=== PATIENT | female | born 1960 | race Caucasian/White ===

== ENCOUNTER → 2023-10-11 11:05 | Outpatient (REF) | payer OTHER, SELFPAY | LOC: DHCBC HW 11:05 | PROVIDERS: ATTENDING PHYSICIAN Internal Medicine Cardiovascular Disease; FAMILY PHYSICIAN Family Medicine | DX: R00.2 Palpitations (principal) | CPT/HCPCS: 93306 ==

== ENCOUNTER → 2023-10-17 12:57 | Outpatient (REF) | payer OTHER, SELFPAY | LOC: RCS 12:57 | PROVIDERS: ATTENDING PHYSICIAN Internal Medicine Cardiovascular Disease; FAMILY PHYSICIAN Family Medicine | DX: R00.2 Palpitations (principal) | CPT/HCPCS: 93225; 93226 ==

== ENCOUNTER 2024-09-25 18:27 | Emergency (ER) | payer OTHER, SELFPAY ==
[2024-09-25 18:29] VITALS: BP 129/82
--- NOTE | 2024-09-25 19:20 | ED.GENMED ---
History of Present Illness
<SINAI Edwards - Last Filed: 09/25/24 22:25>
General
Chief Complaint: Cardiac Symptoms
Source: patient
Exam Limitations: none
Time Seen by Provider: 09/25/24 19:06
History of Present Illness
History of Present Illness:
This is a 63 year old female that comes in with c/o gastric pain/ heart palpitations. States that she feels like her heart is pounding. States that she feels this pulsation in the upper abd. States that his has been going on for a couple of months.
States that it seemed to get better and then got worse. States that she saw the GI specialist and she was told to see the [facility] for further evaluation. States that she can't get into see them till November. States that she felt like this in the
past when she had Lyme disease. States that she has had some nausea and a headache. Denies any fever, chills, SOB, vomiting, diarrhea, dizziness, urinary burning.
Past History
<SINAI Edwards - Last Filed: 09/25/24 22:25>
Past History
ED Past Medical History: GERD, Hypercholesterolemia, Hypothyroidism, Psychiatric (Depression) and Other (Vertigo, Tinnitus, Lyme)
ED Past Surgical History: Appendectomy and Gynecological (Endometriosis surgery)
Social History
Tobacco: Former smoker
Alcohol: Occasional
Drug: Marijuana
Personal: Partner
Living: with family
Review of Systems
<SINAI Edwards - Last Filed: 09/25/24 22:25>
Review of Systems
All Other Systems: ROS reviewed and negative except as documented in HPI and ROS
Constitutional: Reports no symptoms; Denies fever or chills
EENT: Reports no symptoms
Respiratory: Reports no symptoms; Denies cough or trouble breathing
Cardiac: Denies chest pain
ABD/GI: Reports abdominal pain (Upper abd discomfort) and nausea; Denies vomiting or diarrhea
: Reports no symptoms; Denies dysuria, frequency or urgency
Musculoskeletal: Reports no symptoms
Skin: Reports no symptoms
Neurological: Reports headache; Denies dizzy
Psychiatric: Reports no symptoms
Phy Exam
<SINAI Edwards - Last Filed: 09/25/24 22:25>
General Physical Exam
General Presentation: no apparent distress
General age: appears stated age
General Skin: warm and dry
General Habitus: normal
General Mental: alert
General Hydration: appears well hydrated
ENT Exam
ENT Exam: TM's normal, pharynx normal and neck supple
Eye Exam
Eye Exam: EOMI
Cardiovascular Exam
Cardiovascular Exam: regular rate/rhythm, no edema, no murmur and normal peripheral pulses
Pulmonary Exam
Pulmonary Exam: lungs clear, no respiratory distress, no rales, chest non tender, no crackles, no rhonchi, no wheezing and no cough
Gastrointestinal Exam
Gastrointestinal Exam: normal bowel sounds, soft, no organomegaly, no pulsatile mass, non distended and tender (Epigastric and Right UQ tenderness with palpation)
Musculoskeletal Exam
Musculoskeletal Exam: full ROM and no edema
Skin Exam
Skin Exam: normal color, warm/dry, no rash and no petechia
Psychiatric Exam
Psychiatric Exam: normal mood/affect
Course
<SINAI Edwards - Last Filed: 09/25/24 22:25>
Orders/Labs/Results
Orders:
Orders
09/25/24 18:33
ECG [Electrocardiogram (*1)] Urgent
Reason for Study: Chest Pain
EKG- Treatment ONCE
09/25/24 19:15
Complete Blood Count/With Diff Urgent
Comprehensive Metabolic Panel Urgent
Lipase Urgent
Lyme Progressive Urgent
Comment: ADD ON
TSH Reflex To Free T4 Urgent
Troponin I Urgent
09/25/24 19:19
Add On- LAB Urgent
Tests Added?: Lyme progressive
US Abdomen Complete/Upper Urgent
Comment:
Reason For Exam: Epigastric and right upper abd pain
09/25/24 19:35
CR Chest - 2 Views Urgent
Comment:
Reason For Exam: pounding in her chest
09/25/24 21:13
Pantoprazole [Protonix IV] 40 mg IV NOW STA
Sucralfate Suspension [Carafate Suspension] 1 gm PO NOW STA
09/25/24 21:28
Troponin I Urgent
Abnormal Lab Results
09/25/24
19:15
MCH 31.5 H pg
(27.0-31.0)
Sodium 131 L mmol/L
(135-145)
Chloride 95 L mmol/L
(98-107)
BUN 21 H mg/dl
(7-17)
09/25/24 19:15
09/25/24 19:15
hyponatremia, hypochloremia, slight Dehydration. Troponin <0.012, TSH 2.96
Second Troponin <0.012
Vital Signs
Initial and Last Documented VS:
Initial Vital Signs
Temp Pulse Resp BP Pulse Ox
36.6 C 96 16 129/82 100
09/25/24 18:29 09/25/24 18:29 09/25/24 18:29 09/25/24 18:29 09/25/24 18:29
Last Documented Vital Signs
Temp Pulse Resp BP Pulse Ox
36.6 C 82 14 118/76 99
09/25/24 18:29 09/25/24 21:45 09/25/24 21:45 09/25/24 21:27 09/25/24 21:45
<Javon Martell MD - Last Filed: 09/25/24 22:24>
Orders/Labs/Results
Orders:
Orders
09/25/24 18:33
ECG [Electrocardiogram (*1)] Urgent
Reason for Study: Chest Pain
EKG- Treatment ONCE
09/25/24 19:15
Complete Blood Count/With Diff Urgent
Comprehensive Metabolic Panel Urgent
Lipase Urgent
Lyme Progressive Urgent
Comment: ADD ON
TSH Reflex To Free T4 Urgent
Troponin I Urgent
09/25/24 19:19
Add On- LAB Urgent
Tests Added?: Lyme progressive
US Abdomen Complete/Upper Urgent
Comment:
Reason For Exam: Epigastric and right upper abd pain
09/25/24 19:35
CR Chest - 2 Views Urgent
Comment:
Reason For Exam: pounding in her chest
09/25/24 21:13
Pantoprazole [Protonix IV] 40 mg IV NOW STA
Sucralfate Suspension [Carafate Suspension] 1 gm PO NOW STA
09/25/24 21:28
Troponin I Urgent
Abnormal Lab Results
09/25/24
19:15
MCH 31.5 H pg
(27.0-31.0)
Sodium 131 L mmol/L
(135-145)
Chloride 95 L mmol/L
(98-107)
BUN 21 H mg/dl
(7-17)
09/25/24 19:15
09/25/24 19:15
Vital Signs
Initial and Last Documented VS:
Initial Vital Signs
Temp Pulse Resp BP Pulse Ox
36.6 C 96 16 129/82 100
09/25/24 18:29 09/25/24 18:29 09/25/24 18:29 09/25/24 18:29 09/25/24 18:29
Last Documented Vital Signs
Temp Pulse Resp BP Pulse Ox
36.6 C 82 14 118/76 99
09/25/24 18:29 09/25/24 21:45 09/25/24 21:45 09/25/24 21:27 09/25/24 21:45
<SINAI Edwards - Last Filed: 09/25/24 22:25>
MDM/Problems Addressed
Differential Diagnosis Includes:
Hiatal hernia, Gallbladder disease, Lyme disease. Aortic aneurysm.
MDM/Problems Addressed:
This is a 63 year old female that comes in with c/o gastric issues, Heart palpitations, This pulsation in the upper abd/chest. States that she had similar symptoms when she had lyme's disease. States that she saw the GI specialist and was told to
see the [facility].
Will check labs, US, Chest and lyme progressive.
Back into see patient. Explained that her Ultrasound is normal. Her Troponin and TSH are normal. chest x-ray is normal. Will give patient Protonix know and Carafate. Repeat her Troponin and if all normal will discharge home. Will also place patient
on the Cardiology hot line for further evaluation. Patient to return with any concerns.
Chronic conditions affecting care:
GERD
Acute Exacerbation and/or Progression of Chronic Illness:
GERD
<SINAI Edwards - Last Filed: 09/25/24 22:25>
*Radiology
Radiology exam reviewed: preliminary read by ED provider (Chest-Negative for active disease. ) and radiology read reviewed (US-No sonographic evidence for cholelithiasis, acute cholecystitis, or biliary obstruction. )
*Pulse Oximetry
Patient hypoxic: no
*EKG
Interpreted by ED Provider?: Yes
Heart Rate: 89
Rate: normal
Rhythm: sinus
[place]: normal axis
Interval: normal interval
QRS Pattern: normal QRS
Ischemia: no ischemia
*Lumber Salvager Interpretation
Rate: normal
Heart Rate: 83
Rhythm: sinus
*Critical Care Note
Total Time (30-74mins, 75-104mins- exclusive of procedures): Not Applicable
ED Attending Note
<SINAI Edwards - Last Filed: 09/25/24 22:25>
-
Portions of this chart may have been created with voice recognition software.� Occasional wrong word or��sound alike� substitutions may have occurred due to the inherent limitations of voice recognition software.
<Javon Martell MD - Last Filed: 09/25/24 22:24>
ED Attending Note
Patient seen and examined by attending physician: Yes
ED Attending Note:
I have seen and evaluated the patient with a [id number] encounter. I have spoken to the advance practicer provider and involved in the medical history, the physical exam, medical decision making.
Evaluation and management service: agree unless noted differently below.
Results interpretation: agree unless noted differently below.
Focused HPI: 63-year-old female with history as documented presents to the emergency room for evaluation of epigastric pain. Symptoms have been ongoing for the past 2 months. She reports a fullness/pulsing sensation in the epigastrium. It is
worse with eating. No relieving factors noted. She does occasionally report some palpitations. No shortness of breath. No cough. She has not any vomiting or diarrhea. She says she saw a admissions director today for evaluation of her symptoms
and was supposed to get an upper abdominal ultrasound was also referred to see a treater but says she could not get an expeditious appointment ultimately came here to the ER to be evaluated. Time of my assessment she says she is asymptomatic.
Physical exam: Awake alert no distress. Vital signs normal. No cardiac murmurs. Lungs clear to auscultation bilaterally. Mildly tender in the epigastrium.
Medical Decision Makin-year-old female presents for evaluation of epigastric pain worse with meals associated with 'pulsing' sensation and occasional palpitations. Vitals and exam as above. EKG shows sinus rhythm no acute ischemic changes.
Labs sent off including a CBC and a CMP no clinically significant abnormalities. LFTs and lipase notably normal. Thyroid studies normal. Troponins undetectable. Chest x-ray and abdominal ultrasound showed no acute disease. Low suspicion for
emergent pathology, possibly GERD however she was recommended for cardiology follow-up can refer via chest pain hotline for expeditious appointment. Stable for discharge. All questions answered.
Discharge Plan
Departure
Patient Disposition: Home (Routine Discharge)
Date of Disposition: 09/25/24
Time of Disposition: 22:11
Patient with high blood pressure during this ER visit?: No
Condition: Good
Covid-19: Not Applicable
Discharge Problem:
Chest pain, GERD (gastroesophageal reflux disease)
Instructions: Chest Pain (DC), Acid reflux and GERD in adults, Chest Pain DCA Follow Up
Prescriptions:
New
sucralfate [Carafate] 1 gram tablet
1 g PO ACHS Qty: 40 0RF
Rx Instructions:
Dissolve 10ml water and drink 30min-1hour before meals and HS
No Action
ascorbic acid (vitamin C) [Vitamin C] 500 MG tablet
500 mg PO DAILY
Fish Oil
1 tab PO DAILY
vitamin E
1 tab PO DAILY
pantoprazole [Protonix] 40 mg tablet,delayed release (DR/EC)
40 mg PO DAILY Qty: 10 0RF
sucralfate [Carafate] 1 gram tablet
1 g PO AC Qty: 20 0RF
pantoprazole 20 mg tablet,delayed release (DR/EC)
20 mg PO DAILY Qty: 20 0RF
doxycycline hyclate 100 mg tablet
100 mg PO BID Qty: 42 0RF
Referrals:
Carlene Crcokett DO [Family Provider] - Call in 1-3 days for appt
Activity Restrictions/Additional Instructions:
As discussed, your blood work shows that your sodium is a little low. Please try eating some canned soup or boxed food that his higher in sodium. Please try and limit your water intake to 6-8oz glasses daily. You have also been place on the
Cardiology hot line. This means that you will called he next business day to set up an appointment for further evaluation. Use the Medication that you have been prescribed by the GI specialist. You have had a prescription for Carafate sent to your
pharmacy. Please dissolve this in 2 tsp waer and drink 30 min to 1 hour before meals and at bedtime. IF YOU HAVE INCREASED OR CHANGING PAIN, OR YOU HAVE ANY OTHER CONCERNS PLEASE RETURN TO THE EMERGENCY ROOM.
Interventions
Interventions:
*Risk Screen - Suicide Last Done: 09/25/24 19:24
*General Assessment Last Done: 09/25/24 19:24
*Neglect/Abuse Screening Last Done: 09/25/24 19:27
ED- Cardiac Assessment Last Done: 09/25/24 19:24
ED- Pulmonary Assessment Last Done: 09/25/24 19:24
Discharge Date and Time
Print Language: LUX[place]BOURG[place]
[2024-09-25 19:24] LABS: % Basophils 0.8 % (0-2); % Eosinophils 0.6 % (0-6); % Immature Granulocytes 0.2 % (0-0.5); % Lymphocytes 21.9 % (20.5-51.1); % Monocytes 9.3 % (1.7-9.3); % Neutrophils 67.2 % (42.2-75.2); Absolute Lymphocytes 1.2 10^3/uL (1.2-3.4); Absolute Monocytes 0.5 10^3/uL (0.1-0.6); Absolute Neutrophils 3.6 10^3/uL (1.4-6.5); Hematocrit 41.3 % (37.0-47.0); Hemoglobin 14.3 g/dL (12.0-16.0); Mean Corp Hgb Conc. 34.6 g/dL (33.0-37.0); Mean Corpuscular Hgb 31.5 pg (27.0-31.0); Nucleated Red Blood Cells % 0 %; Platelet Count 269 10^3/uL (130-400); Red Blood Cell Count 4.54 10^6/uL (4.20-5.40); Red Cell Dist. Width 12.5 % (11.5-14.5); White Blood Cell Count 5.3 10^3/uL (4.8-10.8)
[2024-09-25 19:37] LABS: ALT (SGPT) 29 U/L (0-35); AST (SGOT) 28 U/L (14-36); Alkaline Phosphatase 70 U/L (38-126); Blood Urea Nitrogen 21 mg/dl (7-17); Calcium 9.4 mg/dl (8.4-10.2); Carbon Dioxide 25 mmol/L (22-30); Chloride 95 mmol/L (98-107); Glucose 83 mg/dl (70-99); Potassium 4.4 mmol/L (3.5-5.1); Sodium 131 mmol/L (135-145); Total Bilirubin 0.6 mg/dl (0.2-1.3); Total Protein 7.9 g/dl (6.3-8.2); eGFR > 60.00
[2024-09-25 19:38] LABS: Lipase 117 U/L (23-300)
[2024-09-25 19:47] LABS: Troponin I < 0.012 ng/ml
[2024-09-25 20:08] LABS: TSH Reflex To Free T4 2.96 uIU/ml (0.47-4.68)
[2024-09-25] MEDS: PROTONIX IV 40 MG IV (21:20)
[2024-09-25] MEDS: CARAFATE SUSPENSION 1 GM PO (21:20)
[2024-09-25 21:23] VITALS: BP 127/75
[2024-09-25 21:27] VITALS: BP 118/76
[2024-09-25 22:04] LABS: Troponin I < 0.012 ng/ml
[2024-09-27 11:15] LABS: Lyme Antibody Screen, EIA Presump. Positive (Negative)
== END 2024-09-25 22:29 | disposition home or self-care (01) ==
LOC: EMR 18:27
PROVIDERS: Clinical Nurse Specialist Family Health; Emergency Medicine; EMERGENCY PHYSICIAN Emergency Medicine; FAMILY PHYSICIAN Family Medicine
DX: K21.9 Gastro-esophageal reflux disease without esophagitis (principal); R07.89 Other chest pain; Z87.891 Personal history of nicotine dependence
CPT/HCPCS: 99285; 96374; 71046; 76700; 80053; 83690; 84443; 84484; 85025; 86617; 86618; 93005; 99284

== ENCOUNTER 2024-10-01 11:37 | Emergency (ER) | payer OTHER, SELFPAY ==
[2024-10-01 11:54] VITALS: BP 142/76
[2024-10-01 12:38] LABS: % Basophils 0.9 % (0-2); % Eosinophils 0.9 % (0-6); % Immature Granulocytes 0.2 % (0-0.5); % Lymphocytes 25.1 % (20.5-51.1); % Monocytes 8.4 % (1.7-9.3); % Neutrophils 64.5 % (42.2-75.2); Absolute Lymphocytes 1.1 10^3/uL (1.2-3.4); Absolute Monocytes 0.4 10^3/uL (0.1-0.6); Absolute Neutrophils 2.9 10^3/uL (1.4-6.5); Hematocrit 41.6 % (37.0-47.0); Hemoglobin 14.2 g/dL (12.0-16.0); Mean Corp Hgb Conc. 34.1 g/dL (33.0-37.0); Mean Corpuscular Hgb 31.1 pg (27.0-31.0); Mean Platelet Volume 9.3 fL (7.4-10.4); Nucleated Red Blood Cells % 0 %; Platelet Count 271 10^3/uL (130-400); Red Blood Cell Count 4.57 10^6/uL (4.20-5.40); Red Cell Dist. Width 12.4 % (11.5-14.5); White Blood Cell Count 4.4 10^3/uL (4.8-10.8)
[2024-10-01 12:44] LABS: ALT (SGPT) 22 U/L (0-35); AST (SGOT) 21 U/L (14-36); Albumin 4.7 g/dl (3.5-5.0); Alkaline Phosphatase 57 U/L (38-126); Blood Urea Nitrogen 15 mg/dl (7-17); Calcium 9.6 mg/dl (8.4-10.2); Carbon Dioxide 26 mmol/L (22-30); Chloride 99 mmol/L (98-107); Glucose 110 mg/dl (70-99); Potassium 4.7 mmol/L (3.5-5.1); Sodium 133 mmol/L (135-145); Total Bilirubin 0.5 mg/dl (0.2-1.3); Total Protein 7.3 g/dl (6.3-8.2); eGFR > 60.00
[2024-10-01 12:53] LABS: Troponin I < 0.012 ng/ml
[2024-10-01 13:06] LABS: Lipase 98 U/L (23-300)
[2024-10-01 16:59] VITALS: BP 134/79
--- NOTE | 2024-10-01 17:01 | ED.GENMED ---
History of Present Illness
General
Chief Complaint: Abdominal Symptoms
Time Seen by Provider: 10/01/24 17:01
History of Present Illness
History of Present Illness:
TIME OF INITIAL ENCOUNTER: 5:30 PM
HPI: The patient comes back with a general unwell feeling. She primarily is concerned of 'gas pains that are causing palpitations'. She also states that her GI doctor thought she should be tested for ovarian cancer and that the symptoms can be
seen with ovarian cancer. She has some vague abdominal discomfort as well. She already has a Holter monitor that she is currently wearing.
EXAM:
GENERAL: Well appearing in no distress
HEENT: Moist oral mucosa
CARDIOVASCULAR: No murmurs, normal heart rate, regular rhythm, No chest wall tenderness, rare ectopy heard
PULMONARY: No respiratory distress, breath sounds are clear and equal
ABDOMEN: Soft with no peritoneal signs, no tenderness
NEUROLOGIC: Excellent strength all extremities, no coordination deficits
PSYCHIATRIC: Appropriate mental status, normal insight and judgement
EXTREMITIES: Nontender, no edema, moves all extremities equally
SKIN: No rash, no lesions
NUMBER AND COMPLEXITY OF PROBLEMS ADDRESSED AT THE ENCOUNTER
� Chronic conditions affecting care: Hyperlipidemia, GERD, depression, has had appendectomy
� Acute Exacerbation and/or Progression of Chronic Illness: This is an acute problem
� Differential Diagnosis includes: Electrolyte abnormality, thyroid disease, malignancy unlikely, ACS unlikely, GERD
AMOUNT AND/OR COMPLEXITY OF DATA TO BE REVIEWED AND ANALYZED
� I performed an independent evaluation of and my interpretation is:
EKG: Sinus 81, normal axis, no acute ST abnormality, no change from 09/25/2024
CT: CT abdomen and pelvis personally reviewed and I see no acute abnormality
X-rays:
Laboratory Studies: CBC shows a white count of 4.4, sodium slightly low at 133, troponin less than 0.012, lipase and LFTs unremarkable.
Other:
� Review of other/old records: Chest x-ray from 1 week ago was unremarkable
� Clinical information was obtained by an independent historian: None needed
� Prescriptions/Medications Considered but not given:
� Further testing considered but not performed:
RISK OF COMPLICATIONS AND/OR MORBIDITY OR MORTALITY OF PATIENT MANAGEMENT
� Social determinants of health affecting care: Lives at home
� Discussion with other providers:
� Escalation of care including admission/observation vs risk of discharge considered: The patient is well-appearing. She has occasional ectopy on auscultation. She is in a sinus rhythm. She does take a PPI and will add
magnesium level. Her TSH was recently checked and was normal. LFTs were normal. She is very concerned about what the GI doctor told her�will obtain CT imaging with IV contrast. Will also give IV fluids to ensure that she is well-hydrated.
Magnesium level also normal.
ANY OTHER UPDATES:
CT imaging personally reviewed. She was given IV fluids. Reviewed CT results with patient�she does have right greater than left hip pain and I suggest that she could follow-up with orthopedics as well. She is strong suspect that her symptoms are
related to GERD. She feels improved after fluid given.
Past History
Past History
ED Past Medical History: GERD, Hypercholesterolemia, Hypothyroidism, Psychiatric (Depression) and Other (Vertigo, Tinnitus, Lyme)
ED Past Surgical History: Appendectomy and Gynecological (Endometriosis surgery)
Social History
Tobacco: Former smoker
Alcohol: Occasional
Drug: Marijuana
Personal: Partner
Living: with family
Phy Exam
Physical Exam
Physical Exam:
See HPI
Course
Orders/Labs/Results
Orders:
Orders
10/01/24 11:57
Electrocardiogram (*1) Urgent
Reason for Study: Abdominal Pain
EKG- Treatment ONCE
10/01/24 12:01
Complete Blood Count/With Diff Urgent
Comprehensive Metabolic Panel Urgent
Lipase Urgent
Magnesium Urgent
Comment: ADDON
Troponin I Urgent
10/01/24 17:40
Add On- LAB Urgent
Tests Added?: magnesium
CT Abd/pelvis W Iv Cont Urgent
Comment:
Reason For Exam: abd pain
0.9% Sodium Chloride 1000 ml [Nss] 1,000 ml IV BOLUS
Abnormal Lab Results
10/01/24
12:01
WBC 4.4 L 10^3/uL
(4.8-10.8)
MCH 31.1 H pg
(27.0-31.0)
Absolute Lymphs (auto) 1.1 L 10^3/uL
(1.2-3.4)
Sodium 133 L mmol/L
(135-145)
Glucose 110 H mg/dl
(70-99)
Magnesium 2.4 H mg/dl
(1.6-2.3)
10/01/24 12:01
10/01/24 12:01
Vital Signs
Initial and Last Documented VS:
Initial Vital Signs
Temp Pulse Resp BP Pulse Ox
36.7 C 99 16 142/76 98
10/01/24 11:54 10/01/24 11:54 10/01/24 11:54 10/01/24 11:54 10/01/24 11:54
Last Documented Vital Signs
Temp Pulse Resp BP Pulse Ox
36.7 C 76 18 134/79 100
10/01/24 11:54 10/01/24 16:59 10/01/24 16:59 10/01/24 16:59 10/01/24 16:59
*Critical Care Note
Total Time (30-74mins, 75-104mins- exclusive of procedures): Not Applicable
ED Attending Note
-
Portions of this chart may have been created with voice recognition software.� Occasional wrong word or��sound alike� substitutions may have occurred due to the inherent limitations of voice recognition software.
Discharge Plan
Departure
Patient Disposition: Home (Routine Discharge)
Date of Disposition: 10/01/24
Time of Disposition: 20:52
Patient with high blood pressure during this ER visit?: Yes
Discharge Problem:
Abdominal pain
Instructions: Abdominal Pain
Prescriptions:
No Action
ascorbic acid (vitamin C) [Vitamin C] 500 MG tablet
500 mg PO DAILY
Fish Oil
1 tab PO DAILY
vitamin E
1 tab PO DAILY
pantoprazole [Protonix] 40 mg tablet,delayed release (DR/EC)
40 mg PO DAILY Qty: 10 0RF
sucralfate [Carafate] 1 gram tablet
1 g PO AC Qty: 20 0RF
pantoprazole 20 mg tablet,delayed release (DR/EC)
20 mg PO DAILY Qty: 20 0RF
doxycycline hyclate 100 mg tablet
100 mg PO BID Qty: 42 0RF
sucralfate [Carafate] 1 gram tablet
1 g PO ACHS Qty: 40 0RF
Rx Instructions:
Dissolve 10ml water and drink 30min-1hour before meals and HS
Referrals:
Carlene Crockett DO [Family Provider] -
Activity Restrictions/Additional Instructions:
Basic blood work is unremarkable. Cardiac blood work again is normal. The CAT scan of your belly shows no cause of your pain. There is a tiny cyst in the right liver which would not be the cause of your pain. There is no sign of bowel
obstruction. You have degenerative changes to the hips more so on the right. Continue taking the PPI that you are already taking for GERD (medicine like omeprazole), and consider taking something like Pepcid and Maalox for more immediate relief.
Interventions
Interventions:
*Risk Screen - Suicide Last Done: 10/01/24 11:54
*General Assessment Last Done: 10/01/24 16:59
*Neglect/Abuse Screening Last Done: 10/01/24 11:54
ED- Fall Risk Assessment Last Done: 10/01/24 17:01
*ED COVID-19 Vaccine History Last Done: 10/01/24 16:59
EF-Fcfajb-Vbjdlkxkeb Assessment Last Done: 10/01/24 17:00
Discharge Date and Time
Print Language: MONGOL[place]
[2024-10-01] MEDS: NSS 1000 IV (17:55)
[2024-10-01 18:43] LABS: Magnesium 2.4 mg/dl (1.6-2.3)
== END 2024-10-01 21:26 | disposition home or self-care (01) ==
LOC: EMR 11:37
PROVIDERS: Emergency Medicine; EMERGENCY PHYSICIAN Emergency Medicine; FAMILY PHYSICIAN Family Medicine
DX: R10.9 Unspecified abdominal pain (principal); E03.9 Hypothyroidism, unspecified; K21.9 Gastro-esophageal reflux disease without esophagitis; E78.00 Pure hypercholesterolemia, unspecified; Z87.891 Personal history of nicotine dependence; Z90.49 Acquired absence of other specified parts of digestive tract
CPT/HCPCS: 96360; 99284; 74177; 80053; 83690; 83735; 84484; 85025; 93005; Q9967

== ENCOUNTER → 2024-10-23 14:38 | Outpatient (REF) | payer MEDICARE, OTHER, SELFPAY | LOC: RCS 14:38 | PROVIDERS: ATTENDING PHYSICIAN Nurse Practitioner Gerontology; FAMILY PHYSICIAN Family Medicine | DX: R00.2 Palpitations (principal) | CPT/HCPCS: 93306 ==

== ENCOUNTER → 2024-11-27 14:52 | Outpatient (REF) | payer MEDICARE, OTHER, SELFPAY | LOC: WDC 14:52 | PROVIDERS: ATTENDING PHYSICIAN Obstetrics & Gynecology; FAMILY PHYSICIAN Family Medicine | DX: Z12.31 Encounter for screening mammogram for malignant neoplasm of breast (principal) | CPT/HCPCS: 77063; 77067 ==